=== PATIENT | male | born 1970 | race Caucasian/White ===

== ENCOUNTER 2017-01-02 12:30 | Emergency (ER) | payer OTHER, MEDICARE ==
[~2017-01-02] VITALS: Ht 167.6 cm; Wt 68.0 kg
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
[2017-01-02] MEDS ORDERED: ATIVAN0.5 M1 PO (14:57)
[2017-01-02] MEDS ORDERED: DEXTROAMP-AMPHE20 MG PO (14:57)
[2017-01-02 15:10] VITALS: BP 120/80
== END 2017-01-02 15:12 ==
LOC: ERH 12:30
DX: F41.9 Anxiety disorder, unspecified (principal); F31.9 Bipolar disorder, unspecified; F20.9 Schizophrenia, unspecified; Z76.0 Encounter for issue of repeat prescription